=== PATIENT | male | born 1960 | race Caucasian/White ===

== ENCOUNTER 2020-08-24 14:27 | Emergency (ER) | payer SELFPAY ==
[2020-08-24] MEDS ORDERED: Ondansetron ODT 4 MG TAB ONE (17:07)
--- NOTE | 2020-08-24 17:38 | CT ---
CT OF THE BRAIN WITHOUT CONTRAST: 08/24/20 COMPARISON: None. HISTORY: Benign positional paroxysmal vertigo. Patient fell from the mule with headache. TECHNIQUE: Multiple contiguous axial images were obtained in a CT of the brain without contrast. FINDINGS: The brain is normal in morphology and attenuation without focal lesions or confluent areas of infarct ion. There is no evidence of hydrocephalus, intracranial hemorrhage, or extra-axial fluid collection. The calvarium and overlying soft tissues are unremarkable. The visualized paranasal sinuses and masto id air cells are well aerated. IMPRESSION: No evidence of acute intracranial abnormality. POS: [facility]
== END 2020-08-24 17:59 | disposition home or self-care (01) ==
LOC: ERS 14:27
DX: S09.90XA Unspecified injury of head, initial encounter (principal); V80.010A Animal-rider injured by fall from or being thrown from horse in noncollision accident, initial encounter
CPT/HCPCS: 70450; Q0162